=== PATIENT | female | born 1950 | race Caucasian/White ===

== ENCOUNTER → 2017-10-09 14:51 | Outpatient (CLI) | payer BC, SELFPAY | PROVIDERS: Family Provider Family Medicine; PCP Family Medicine; Visit Provider Family Medicine | DX: M85.80 Other specified disorders of bone density and structure, unspecified site (principal); Z78.0 Asymptomatic menopausal state | CPT/HCPCS: 77080 ==

== ENCOUNTER → 2018-11-07 09:30 | Outpatient (CLI) | payer BC, SELFPAY | PROVIDERS: Family Provider Family Medicine; PCP Family Medicine; Referring Provider Orthopaedic Surgery; Visit Provider Orthopaedic Surgery | DX: M16.11 Unilateral primary osteoarthritis, right hip (principal) ==

== ENCOUNTER → 2019-10-16 13:56 | Outpatient (CLI) | payer BC, SELFPAY ==
--- NOTE | 2019-10-16 14:01 | BD_ITS ---
STUDY: DUAL ENERGY X-RAY ABSORPTIOMETRY / DXA REASON FOR EXAM: Female, 69 years old. 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 COMPARISON: Comparison is made with prior study dated 10/09/2017. FINDINGS: Lumbar Spine (L1-L4): g/cm2 (1.049) / T-score (-1.0) / Z-score (0.6) Findings are suggestive of normal bone density with a low fracture risk. Left Forearm: g/cm2 (0.643) / T-score (-2.7) / Z-score (-1.1) The T-Scores on the most recent prior examination were: Lumbar Spine (L1-L4): There has been improvement of bone density since the previous examination. BD/Dexa Bone Density Study IMPRESSION: The patient is considered osteoporotic as outlined below according to World M[employer] Organization (WHO) criteria with a high fracture risk. Reference Information: The T-score is the number of standard deviations above or below the standard which is normal for young adults at their peak bone mineral density. The World Health Organization (WHO) interprets the T-scores as follows: Above -1 Normal bone density Between -1 and -2.5 Osteopenia Equal to / or below -2.5 Osteoporosis As a practical clinical guideline, osteopenia may be graded as follows: Mild -1 through -1.5 Moderate -1.6 through -2.0 Severe -2.1 through -2.4 The Z-score is the number of standard deviations above or below age-matched controls. A Z-score of less than -1.5 would be considered abnormal. References: 1. NIH Osteoporosis and Related Bone Diseases http://www.osteo.org 2. International Society for Clinical Densitometry http://www.iscd.org 3. National Osteoporosis Foundation http://www.nof.org Electronically Signed: Eamon Toussaint, at 15:30 EDT , Service support ,
== END ==
PROVIDERS: PCP Family Medicine; Referring Provider Obstetrics & Gynecology; Visit Provider Obstetrics & Gynecology
DX: M81.0 Age-related osteoporosis without current pathological fracture (principal); Z78.0 Asymptomatic menopausal state
CPT/HCPCS: 77080

== ENCOUNTER 2022-09-21 14:16 | Emergency (ER) | payer OTHER, SELFPAY ==
[2022-09-21 14:20] VITALS: BP 119/77; PULSE 62; RESP 18; TEMP 36.6; O2SAT 100; BMI 27.8
--- NOTE | 2022-09-21 14:38 | EKG12_ITS ---
Test Reason : CP Blood Pressure : / mmHG Vent. Rate : 058 BPM Atrial Rate : 058 BPM P-R Int : 170 ms QRS Dur : 072 ms QT Int : 410 ms P-R-T Axes : 050 -05 -14 degrees QTc Int : 402 ms Sinus bradycardia Nonspecific ST and T wave abnormality Abnormal ECG Confirmed by HAMILTON WHITT, ABRAM ([id number]), book editor FAHAD LONGO ([id number]) on 09/22/2022 10:00:59 AM Referred By: MORIS Confirmed By:ABRAM VILLASENOR MD
--- NOTE | 2022-09-21 14:50 | RAD_ITS ---
STUDY: X-RAY CHEST REASON FOR EXAM: Female, 72 years old. Chest pain TECHNIQUE: Single AP portable view of the chest. COMPARISON: None. FINDINGS: EKG electrodes are seen. Hyperinflation. The lungs are clear. There is no demonstrated pleural abnormality. Normal size heart. Normal mediastinum and katie. Normal visualized pulmonary arteries. There is atherosclerotic calcification of the aortic arch with tortuosity. Normal visualized thoracic spine. Normal visualized ribs, clavicles, and shoulders. There is no demonstrated abnormality of the visualized soft tissue structures of the upper abdomen. RAD/Chest 1 View (Portable) IMPRESSION: Hyperinflation. The lungs are clear. Electronically Signed: Eamon Toussaint MD at 15:16 EDT ,
[2022-09-21 15:06] LABS: Absolute Neutrophil Count 3.1 X10^3/uL (2.0-7.7); Basophil# 0.05 X10^3/uL; Eosinophil# 0.23 X10^3/uL; Eosinophils% 4.6 % (0-5); Hematocrit 38.3 % (37-47); Hemoglobin 12.8 g/dL (12.0-15.0); Lymphocyte % 24.2 % (19-41); Mean Corp Hgb Conc 33.4 g/dL (32-36); Mean Corpuscular Hgb 29.4 pg (27.0-32.0); Mean Corpuscular Volume 87.8 fL (81-99); Mean Platelet Vol. 10.1 fl (6.2-12.0); Monocyte# 0.38 X10^3/uL; Monocyte% 7.7 % (0-10); NRBC Flagged by Analyzer 0 % (0-5); Neutrophil # 3.08 X10^3/uL (2.7-7.7); Neutrophil % 62.3 % (47-70); Platelet Count 244 K/mm3 (150-450); RBC Distribution Width CV 13.3 % (11.6-14.6); RBC Distribution Width SD 43.1 fl (35.1-43.9); Red Blood Count 4.36 M/mm3 (4.2-5.4)
--- NOTE | 2022-09-21 15:09 | EDS_ITS ---
<Statement entered by Tejal Fair MD - 09/21/22 23:35> I have personally performed a face to face assessment of the patient and have reviewed the EFE Note. Patient presents with episode of chest pain. She states she was on her way to work when she got pain across her upper abdomen/lower chest as well as slight tightness in her left jaw. She did not become short of breath or diaphoretic. She states pain started to subside before EMS arrived. She was given 2 nitro and states she has no pain at this time. Patient sitting upright in bed no acute distress. Head and neck examination unremarkable. Heart regular rate and rhythm. Lung sounds are clear. Abdomen is soft and nontender. EKG reveals no acute ischemia. Lab work largely unremarkable. Troponin x2 is negative. Her heart score is 2 only for age. She has not had any recurrent pain. She has not had any chest pain or dyspnea with her daily activities the last couple weeks. She feels comfortable with close outpatient follow-up. Return instructions are given. HPI History of Present Illness Chief Complaint: Chest Pain Narrative Narrative: Patient presenting today due to substernal chest tightness and pain to her left jaw that started this afternoon as she was pulling out of the driveway to go to work. She reports that this has never happened before, she denies any cardiac history. She did not feel short of breath when that happened. She did call EMS and they gave her 2 nitros and 4 aspirin and she reports that the pain has resolved but was getting better even before they gave this to her. PMH includes GERD. She has not had any cardiac testing for several years. She denies a significant cardiac history in her family. She denies a history of blood clots, recent surgeries or procedures, and recent immobilization. [facility] Medical History Chronic GERD Allergy/AdvReac Type Severity Reaction Status Date / Time clindamycin Allergy hives Verified 09/21/22 14:19 Social History Smoking Status: Never smoker ROS ROS ED Constitutional Constitutional ED: Denies chills or fever(s) Eyes Eyes: Denies change in vision Cardiovascular Cardiovascular: Reports chest pain; Denies palpitations or racing heartbeat Respiratory/Chest Respiratory/Chest: Denies cough, dyspnea or dyspnea on exertion Gastrointestinal Gastrointestinal: Denies abdominal pain, nausea or vomiting Genitourinary Genitourinary ED: Denies dysuria, hematuria or urinary urgency Musculoskeletal Musculoskeletal: Denies arthralgias, back pain or myalgias Integumentary Denies abscess, Abrasions or rash Neurologic Neurologic: Denies dizziness or weakness Psychiatric Psychiatric: Denies anxiety, depression, suicidal ideation or suicidal thoughts EXAM Physical Exam Const Vital Signs: 09/21/22 14:20 09/21/22 15:16 09/21/22 16:00 Temperature 97.8 F Temperature Source Temporal Pulse Rate 62 78 78 Respiratory Rate 18 16 14 Blood Pressure 119/77 145/78 H 142/76 H Blood Pressure Mean 91 100 98 Pulse Ox 100 98 98 Oxygen Delivery Method Room Air Room Air Room Air 09/21/22 17:00 Temperature Temperature Source Pulse Rate 81 Respiratory Rate 14 Blood Pressure 137/72 H Blood Pressure Mean 93 Pulse Ox 97 Oxygen Delivery Method Room Air Positive well nourished, well developed and no apparent distress General Appearance ED: well developed HEENT Reports normocephalic and head/scalp atraumatic Mouth ED: Yes moist mucous membranes normal Eyes PERRL and EOMs intact bilaterally Neck full ROM and supple Chest Wall inspection of chest normal Resp normal respiratory effort and clear to auscultation bilaterally Cardio regular rate and regular rhythm GI soft to palpation, non-tender, non-distended and no masses Back/Spine normal ROM and normal to inspection Extremity normal to inspection and full ROM Neuro oriented x3, CN's II-XII intact bilaterally, moves all extremities, no focal motor deficits and no sensory deficits noted Sensorium / Orientation: awake and alert Psych mental status grossly normal and thought process normal Skin no rashes or lesions noted and no wounds Heart Score History: Moderately Suspicious ECG: Normal Age: >/= 65 years Risk Factors: No Risk Factors Troponin: </= Normal Limit Score: 3 MDM MDM MDM Narrative Medical decision making narrative: Patient presenting today due to an episode of substernal chest tightness and pain to her left jaw that started while she was backing out of the driveway this afternoon to go to work. She did go inside and called EMS and prior to them arriving the pain did start to go away and they did give her aspirin and nitro and he reports that the pain is gone now. She is well-appearing and in no acute distress, vitals are unremarkable. She denies history of blood clots, recent surgery/procedures, recent immobilization. Labs will be obtained to rule out leukocytosis, anemia, electrolyte abnormality, and ACS. Chest x-ray will be obtained to rule out cardiopulmonary abnormality and is negative for any acute findings. Delta troponin is relatively unchanged, labs are unremarkable. Chest x-ray negative for any acute findings. EKG is sinus bradycardia. I did speak to the patient regarding admission versus outpatient follow-up for cardiac testing as she has not recently had this. She reports that her PCP will be able to get her in quickly and she would rather follow-up outpatient. I feel that this is reasonable as her heart score is only 3. She does not have diabetes, she is not a smoker, she does not have a significant family history of CAD, there is no hypertension or hyperlipidemia, she is not obese. She will be discharged home in stable condition and is comfortable with plan. She has been given return instructions. Lab Data Attestation: I reviewed the patient's lab results. Labs: Laboratory Results - last 24 hr 09/21/22 09/21/22 14:10 17:00 WBC 5.0 RBC 4.36 Hgb 12.8 Hct 38.3 MCV 87.8 MCH 29.4 MCHC 33.4 RDW Std Deviation 43.1 RDW Coeff of Jeremiah 13.3 Plt Count 244 MPV 10.1 Immature Gran % (Auto) 0.200 Neut % (Auto) 62.3 Lymph % (Auto) 24.2 Lawrence % (Auto) 7.7 Eos % (Auto) 4.6 Baso % (Auto) 1.0 Absolute Neuts (auto) 3.1 Absolute Lymphs (auto) 1.20 Nucleated RBC % 0 Sodium 135 L Potassium 4.3 Chloride 104 Carbon Dioxide 27.0 Anion Gap 4 L BUN 11 Creatinine 0.95 Estim Creat Clear Calc 53.58 Est GFR (MDRD) Af Amer 75 Est GFR (MDRD) Non-Af 62 BUN/Creatinine Ratio 11.6 Glucose 104 Calcium 9.2 Troponin I High Sens 6 8 Radiography X-Ray: Read by ED Physician and Read by Radiologist Diagnostic Testing: Clinical Impression(s) from Imaging Studies Chest X-Ray 09/21/22 14:50 IMPRESSION: Hyperinflation. The lungs are clear. Electronically Signed: Eamon Toussaint MD at 15:16 EDT , EKG Initial EKG: Comments: 50 bpm, sinus bradycardia, no ST elevation, reviewed and interpreted by attending ED physician Discharge Plan Triage Chief Complaint: Chest Pain ED Midlevel Provider: Anjelica Aceves ED Provider: Tejal Fair Dx/Rx/DC Orders Clinical Impression: Chest pain Instructions: ED Chest Pain, Uncertain Cause Primary Care Provider: Jaleel Bates Referrals: Jaleel Bates MD [Primary Care Provider] - 3-5 Days Activity Restrictions/Additional Instructions: Please follow-up with your PCP and return for any worsening of your symptoms. Disposition Disposition: Home, Self Care
[2022-09-21 15:16] VITALS: BP 145/78; PULSE 78; RESP 16; O2SAT 98
[2022-09-21 15:19] LABS: Anion Gap 4 (5-15); BUN 11 mg/dL (7-18); BUN/Creat Ratio 11.6 RATIO (10-20); Calcium,Total 9.2 mg/dL (8.5-10.1); Chloride 104 mmol/L (98-107); Creatinine, Serum 0.95 mg/dL (0.55-1.02); EST Glomerular Filtration Rate 62 mL/min (>60); Est Glom Filt Rate - Afr Amer 75 mL/min (>60); Estimated Creatinine Clearance 53.58 ml/min; Glucose 104 mg/dL (74-106); Potassium 4.3 mmol/L (3.5-5.1); Sodium Level 135 mmol/L (136-145); Troponin-I HS (w/2H Reflex) 6 pg/mL (3.0-54.0)
[2022-09-21 16:00] VITALS: BP 142/76; PULSE 78; RESP 14; O2SAT 98
[2022-09-21 16:56] LABS: Reflex Troponin-HS? (from REC) Y
[2022-09-21 17:00] VITALS: BP 137/72; PULSE 81; RESP 14; O2SAT 97
[2022-09-21 18:27] LABS: Troponin-I HS 8 pg/mL (3.0-54.0)
[2022-09-21 19:08] VITALS: BP 148/82; PULSE 57; RESP 17; O2SAT 100
== END 2022-09-21 19:15 | disposition home or self-care (01) ==
PROVIDERS: Physician Assistant; Emergency Provider Emergency Medicine; PCP Family Medicine; Visit Provider Emergency Medicine
DX: R07.9 Chest pain, unspecified (principal)
CPT/HCPCS: 71045; 80048; 84484; 85025; 93005; 99285; A4216

== ENCOUNTER → 2022-10-19 | Outpatient (CLI) | payer OTHER, SELFPAY ==
--- NOTE | 2022-10-23 16:56 | STRESSREP_ITS ---
Stress Test Report Date: 10/19/2022 Procedure: Exercise tolerance test Indications: Chest pain Consent: Per the patient Procedure: The patient exercised on a Long protocol for 4 minutes and 37 seconds achieving a peak heart rate of 162 bpm (108% predicted maximal heart rate) with a peak blood pressure 154/82 mmHg and a peak MET capacity of approximately 7 MET's. The baseline ECG demonstrated normal sinus rhythm. The peak exercise ECG demonstrated upsloping ST depressions in the inferior and lateral leads. No evidence of significant ischemia or infarction. [There were no cardiac dysrhythmias pretest, during exercise, or recovery]. The functional capacity was considered normal for age. The patient had no complaint of chest discomfort during exercise or recovery. The examination was discontinued secondary to achieving target heart rate. Impression: 1. Technically adequate (percent predicted maximal heart rate greater than 85%) exercise tolerance test 2. Stress test is negative for exercise-induced chest pain. 3. Stress test test is negative for exercise-induced EKG changes of ischemia. 4. Functional capacity is normal for age This note was generated with code-laborationation software. It may contain incorrect words, spelling, and punctuation that were not noted in checking the note before signing.
== END | disposition home or self-care (01) ==
LOC: CVS 11:39
PROVIDERS: PCP Family Medicine; Referring Provider Family Medicine; Visit Provider Family Medicine
DX: R07.9 Chest pain, unspecified (principal)
CPT/HCPCS: 93017

== ENCOUNTER 2024-02-09 20:49 | Emergency (ER) | payer MEDICARE, OTHER, SELFPAY ==
[2024-02-09 20:50] VITALS: BP 141/73; PULSE 79; RESP 20; TEMP 36.6; O2SAT 95; BMI 27.1
--- NOTE | 2024-02-09 20:56 | EKG12_ITS ---
Test Reason : SOB Blood Pressure : */* mmHG Vent. Rate : 81 BPM Atrial Rate : 81 BPM P-R Int : 146 ms QRS Dur : 74 ms QT Int : 336 ms P-R-T Axes : 63 17 35 degrees QTcB Int : 390 ms Sinus rhythm with Premature atrial complexes Otherwise normal ECG Confirmed by HAMILTON WHITT, ABRAM ([id number]), film editor FAHAD LONGO ([id number]) on 02/11/2024 7:09:59 AM Referred By: REYES Confirmed By: ABRAM VILLASENOR MD
--- NOTE | 2024-02-09 21:05 | RAD_ITS ---
EXAM: XR CHEST, 1 VIEW CLINICAL INDICATION: chest pain TECHNIQUE: Frontal view of the chest. COMPARISON: 09/21/2022 FINDINGS: LUNGS AND PLEURAL SPACES: Unremarkable. No consolidation or edema. No pneumothorax. No effusion. HEART: Unremarkable. Cardiac silhouette not enlarged. MEDIASTINUM: Central airways and mediastinal contour are unremarkable. BONES/JOINTS: Unremarkable. No acute fracture. SOFT TISSUES: Unremarkable. RAD/Chest 1 View (Portable) IMPRESSION: No radiographic evidence of acute cardiopulmonary disease. Electronically Signed: Colt Kaufman MD at 21:54 EST ,
--- NOTE | 2024-02-09 21:15 | EDS_ITS ---
HPI HPI - URI History of Present Illness Chief Complaint: Shortness of Breath Detail of Chief Complaint: URI symptoms since Sunday getting worse. Informant: patient and spouse/S.O. Onset/Context/Timing Onset: Days Context: Gradual Onset Timing: Continuous Current Severity: Mild Maximum Severity: Moderate Associated Symptoms Associated Symptoms: Positive for Shortness of Breath and Productive Cough (Yellowish phlegm.) Narrative Narrative: 74-year-old female states she has had URI symptoms since Sunday. Was seen by a nurse practitioner at the local [facility] facility. Had reportedly a negative chest x-ray. Was put on an inhaler and prednisone and says she is getting worse. She did a COVID test at home which she states was negative. She states she has been wheezing and does not believe the steroids been helping her. She really denies chest pain. No hemoptysis. No leg pain or swelling. Prior similar symptoms: Yes Recent Illness/Hospitalization: No ROS ROS ED ROS Narrative Productive cough of yellowish sputum. Shortness of breath and wheezing. Constitutional Constitutional ED: Denies chills or fever(s) Eyes Eyes: Denies blurry vision ENT ENT ED: Denies ear pain Cardiovascular Cardiovascular: Denies chest pain, palpitations or racing heartbeat Respiratory/Chest Respiratory/Chest: Reports cough and sputum Gastrointestinal Gastrointestinal: Denies abdominal pain, constipation, diarrhea, melena, nausea or vomiting Genitourinary Genitourinary ED: Denies dysuria or hematuria Musculoskeletal Musculoskeletal: Denies arthralgias Integumentary Denies abscess or Abrasions Neurologic Neurologic: Denies headache(s) Psychiatric Psychiatric: Denies anxiety, depression or suicidal ideation Endocrine Endocrinology: Denies cold intolerance Hematologic/Lymphatic Hematologic/Lymphatic: Denies easy bleeding Allergic/Immunologic Allergic/Immunologic ED: Denies mouth swelling PFSH PFSH Medical History Chronic GERD Home Medications ?Medication ?Instructions ?Recorded ?Last Taken ?Type albuterol sulfate 90 mcg/actuation 2 puff inhalation Q4H PRN PRN 02/09/24 Unknown History aerosol inhaler wheezing loratadine 10 mg tablet (Claritin) 10 mg PO DAILY 02/09/24 Unknown History omeprazole 20 mg capsule,delayed 20 mg PO DAILY 02/09/24 Unknown History release prednisone 20 mg tablet 20 mg PO DAILY 02/09/24 Unknown History sertraline 50 mg tablet 50 mg PO DAILY 02/09/24 Unknown History Allergy/AdvReac Type Severity Reaction Status Date / Time clindamycin Allergy hives Verified 02/09/24 20:49 Social History Smoking Status: Never smoker EXAM Physical Exam Narrative Exam Narrative: 74-year-old female vital signs stable afebrile. Pulse ox 95% on room air no hypoxia. H EENT exam pupils round react to light. Moist mucous membranes. Neck nontender JVD. No lymphadenopathy. Lungs coarse breath sounds. Expiratory wheezes. Consistent with a URI. No rales or rhonchi. Equal symmetrical. Heart regular rhythm rate about 80 no murmur. Chest wall ribs nontender. Abdomen soft nontender. Moving all 4 extremities. 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 Dorsi plantarflexion intact. Calves nontender without edema nor co rds. She is awake and alert. Answer questions following commands. Back nontender. Const Vital Signs: 02/09/24 20:50 02/09/24 21:25 02/09/24 21:34 Temperature 97.8 F Temperature Source Oral Pulse Rate 79 81 Respiratory Rate 20 H 18 Respiratory Effort Respiratory Depth Respiratory Pattern Normal Blood Pressure 141/73 H Blood Pressure Mean 95 Pulse Ox 95 94 Oxygen Delivery Method Room Air Room Air 02/09/24 21:34 Temperature Temperature Source Pulse Rate Respiratory Rate Respiratory Effort Short of Breath Labored Respiratory Depth Shallow Respiratory Pattern Tachypnea Blood Pressure Blood Pressure Mean Pulse Ox Oxygen Delivery Method Room Air Positive well nourished and well developed; Negative for obese, cachectic or contractures General Appearance ED: well developed and NAD; Negative for cachectic, contractures, cyanotic, diaphoretic or pallor Nutritional Appearance: Negative for cachectic or obese HEENT Reports moist mucous membranes normocephalic and atraumatic Throat: posterior oropharynx normal Eyes PERRL and EOMs intact bilaterally General Eye ED: Negative for pale conjunctiva or scleral icterus Neck no lymphadenopathy, supple and no meningeal signs General: Negative for lymphadenopathy Resp normal respiratory effort and No clear to auscultation bilaterally Resp Narrative: Coarse breath sounds. Expiratory wheezes. Equal symmetrical. No rales no rhonchi. Auscultation: wheezes; Negative for rales or rhonchi Cardio S1 normal heart sound, S2 normal heart sound and no murmurs Rate: regular rate Rhythm: regular rhythm GI non-tender, non-distended and no masses Palpation: soft; Negative for tender or guarding Back/Spine no CVA tenderness and normal ROM General Back: Negative for CVA tenderness Cervical Spine: Negative for cervical spine tenderness Thoracic Spine / Upper Back: Negative for thoracic spinal tenderness Lumbar Spine / Lower Back: Negative for lumbar spinal tenderness Sacrum: Negative for tenderness Extremity normal to inspection and full ROM General Extremety ED: Negative for cyanosis or tenderness General Extremity: Negative for cyanosis Neuro oriented x3 and CN's II-XII intact bilaterally Sensorium / Orientation: alert, oriented to person, oriented to place and oriented to time; Negative for orientation impaired or lethargic Motor Exam: strength 5/5 throughout Psych mental status grossly normal Attitude: No agitated Mood & Affect: Negative for depressed or tearful Skin General Skin Exam: Negative for jaundice or pallor Lesions: no lesions Rashes: no rashes MDM MDM MDM Narrative Medical decision making narrative: 74-year-old female URI rule out pneumonia versus COVID versus flu versus other etiologies. I do not think this is cardiac. She will be treated with IV Solu- Medrol for her wheezing and a DuoNeb aerosol. Screening labs and chest x-ray will be obtained. Repeat exam at 10:25 PM. Patient is doing much better. Wheezing is resolved. She clinically looks and feels better. We went over her test results. RSV was positive. Both she and her are covered with her being discharged home. History & Record Review Discussion w/independent historian: Patient and Family Additional record(s) reviewed:: Prior inpatient record, Prior outpatient record and Prior ED visit Lab Data Attestation: I reviewed the patient's lab results. Lab results narrative: CBC normal. White count of 7. H&H 13 and 39. Platelets 195. Electrolytes sodium 133. Gap 6. BUN 11 and creatinine 0.9. Glucose 125. COVID and flu negative. RSV positive. Labs: Laboratory Results - last 24 hr 02/09/24 21:24 WBC 7.5 RBC 4.35 Hgb 13.3 Hct 39.7 MCV 91.3 MCH 30.6 MCHC 33.5 RDW Std Deviation 44.2 H RDW Coeff of Jeremiah 13.2 Plt Count 195 MPV 9.8 Immature Gran % (Auto) 0.400 Neut % (Auto) 82.4 H Lymph % (Auto) 7.1 L Meeker % (Auto) 6.4 Eos % (Auto) 3.2 Baso % (Auto) 0.5 Absolute Neuts (auto) 6.2 Absolute Lymphs (auto) 0.53 L Nucleated RBC % 0 Sodium 133 L Potassium 4.0 Chloride 102 Carbon Dioxide 25.0 Anion Gap 6 BUN 11 Creatinine 0.94 Estim Creat Clear Calc 58.37 Est GFR (MDRD) Af Amer 75 Est GFR (MDRD) Non-Af 62 BUN/Creatinine Ratio 11.7 Glucose 125 H Calcium 8.9 Radiography Chest X-Ray - ED: 1 View, Read by ED Physician, Normal, Heart, Lungs, Mediast inum, Bony Structures, No Acute Disease and Chronic Changes Diagnostic Testing: Clinical Impression(s) from Imaging Studies Chest X-Ray 02/09/24 21:05 IMPRESSION: No radiographic evidence of acute cardiopulmonary disease. Electronically Signed: Colt Kaufman MD at 21:54 EST , Chest x-ray, will single view, portable interpreted myself shows no acute abnormality. Normal cardiac silhouette. Normal lung lakhani. No pneumonia. No effusions. No edema. Rhythm Strip Rhythm Strip: Sinus Rhythm Rate: 81 Ectopy: None EKG Initial EKG: Attestation: I personally reviewed and interpreted this EKG as follows: Interpretation: Sinus Rhythm and No Acute Injury Pattern Comments: Normal sinus rhythm rate 81 no acute signs of FL or ischemia. Discharge Plan Triage Chief Complaint: Shortness of Breath ED Provider: Freddie Saldivar Dx/Rx/DC Orders Clinical Impression: Viral URI, Bilateral wheezing, Respiratory syncytial virus (RSV) Instructions: RSV (Respiratory Syncytial Virus), ED URI, Viral W/ Wheezing (Adult) Prescriptions: No Action omeprazole 20 mg capsule,delayed release(DR/EC) 20 mg PO DAILY prednisone 20 mg tablet 20 mg PO DAILY albuterol sulfate 90 mcg/actuation HFA aerosol inhaler 2 puff inhalation Q4H PRN PRN (Reason: wheezing) sertraline 50 mg tablet 50 mg PO DAILY loratadine [Claritin] 10 mg tablet 10 mg PO DAILY Primary Care Provider: Jaleel Bates Referrals: Jaleel Bates MD [Primary Care Provider] - 3-5 Days if not improving Activity Restrictions/Additional Instructions: Plenty of fluids and rest. Follow-up with your doctor if not improving or return if worse. Continue your prednisone which should decrease inflammation in your lungs and decrease the wheezing. Use your inhaler as prescribed. 2 puffs every 2-4 hours as needed. You have a viral infection called RSV or respiratory syncytial virus. More commonly seen in children. But adults can catch it. You do not need an antibiotic. This should progressively improved. Print Language: Turkmen Disposition Disposition: Home, Self Care
[2024-02-09 21:25] VITALS: PULSE 81; RESP 18
[2024-02-09] MEDS: Ipratropium/Albuterol Sulfate 3 ML AMPUL.NEB INHALATION (21:25)
[2024-02-09 21:34] VITALS: O2SAT 94
[2024-02-09 21:37] LABS: Absolute Lymphocyte Count 0.53 X10^3/uL (0.83-4.51); Absolute Neutrophil Count 6.2 X10^3/uL (2.0-7.7); Basophil# 0.04 X10^3/uL; Basophil% 0.5 % (0-1); Eosinophil# 0.24 X10^3/uL; Eosinophils% 3.2 % (0-5); Hematocrit 39.7 % (37-47); Hemoglobin 13.3 g/dL (12.0-15.0); Lymphocyte # 0.53 X10^3/ul (0.83-4.51); Lymphocyte % 7.1 % (19-41); Mean Corp Hgb Conc 33.5 g/dL (32-36); Mean Corpuscular Hgb 30.6 pg (27.0-32.0); Mean Corpuscular Volume 91.3 fL (81-99); Mean Platelet Vol. 9.8 fl (6.2-12.0); Monocyte# 0.48 X10^3/uL; Monocyte% 6.4 % (0-10); NRBC Flagged by Analyzer 0 % (0-5); Neutrophil # 6.16 X10^3/uL (2.7-7.7); Neutrophil % 82.4 % (47-70); POSITIVE DIFFERENTIAL YES; Platelet Count 195 K/mm3 (150-450); RBC Distribution Width CV 13.2 % (11.6-14.6); RBC Distribution Width SD 44.2 fl (35.1-43.9); Red Blood Count 4.35 M/mm3 (4.2-5.4); White Blood Count 7.5 K/mm3 (4.4-11.0)
[2024-02-09] MEDS: MethylPREDNISolone 125 MG/2 ML Vial IV (21:43)
[2024-02-09 21:49] LABS: Anion Gap 6 (5-15); BUN 11 mg/dL (7-18); BUN/Creat Ratio 11.7 RATIO (10-20); Calcium,Total 8.9 mg/dL (8.5-10.1); Chloride 102 mmol/L (98-107); Creatinine, Serum 0.94 mg/dL (0.55-1.02); EST Glomerular Filtration Rate 62 mL/min (>60); Est Glom Filt Rate - Afr Amer 75 mL/min (>60); Estimated Creatinine Clearance 58.37 ml/min; Glucose 125 mg/dL (74-106); Sodium Level 133 mmol/L (136-145)
[2024-02-09 22:46] VITALS: BP 137/82; PULSE 91; RESP 18; TEMP 36.7; O2SAT 94
[2024-02-09 22:49] VITALS: BP 137/82; PULSE 91; RESP 18; O2SAT 93
== END 2024-02-09 22:54 | disposition home or self-care (01) ==
PROVIDERS: Emergency Provider Emergency Medicine; PCP Family Medicine; Visit Provider Emergency Medicine
DX: J06.9 Acute upper respiratory infection, unspecified (principal); B97.4 Respiratory syncytial virus as the cause of diseases classified elsewhere
CPT/HCPCS: 71045; 80048; 85025; 87631; 93005; 94640; 96374; 99284; A4216